=== PATIENT | female | born 1980 | race Two or more races ===

== ENCOUNTER 2020-02-16 05:46 | Inpatient (IN) | payer OTHER ==
[2020-02-16] VITALS (18 sets, daily range): BP systolic 113–147; BP diastolic 67–88
[~2020-02-16] VITALS: Ht 167.6 cm; Wt 96.6 kg
[2020-02-16] MEDS ORDERED: LR 1000ml 1,000 ML IVLG SCH (06:35)
[2020-02-16] MEDS ORDERED: Lidocaine 1% MPF 10mg/ml 5ml ONE (06:38)
[2020-02-16] MEDS ORDERED: Sodium Chloride 10ml vial INJ ONE (06:38)
[2020-02-16] MEDS ORDERED: Lidocaine 1% Plain 30 ml INJ ONE (06:39)
[2020-02-16] MEDS ORDERED: Vancomycin 1gm vial IVPB ONE (06:40)
[2020-02-16] MEDS ORDERED: Gelfoam Size TOPIC ONE (06:40)
[2020-02-16] MEDS ORDERED: Thrombin 5000 units TOPIC ONE (06:40)
[2020-02-16] MEDS ORDERED: Ropivacaine 5mg/ml Vial 20ml INJ ONE ×2 (06:41→06:56)
[2020-02-16] MEDS ORDERED: Bacitracin 50000 Units Vial ONE (06:41)
[2020-02-16] MEDS ORDERED: Hydromorphone 0.5mg/0.5ml inj IVP PRN (06:45)
[2020-02-16] MEDS ORDERED: oxyCODONE HCL/Acetaminophen 5/325mg ORAL PRN (06:45)
[2020-02-16] MEDS ORDERED: LORazepam Inj 2mg/ml 1ml IV PRN (06:45)
[2020-02-16] MEDS ORDERED: Midazolam 2mg/2ml Inj IVP PRN (06:45)
[2020-02-16] MEDS ORDERED: Atropine Sulfate 0.4mg/ml inj IVP PRN (06:45)
[2020-02-16] MEDS ORDERED: DiphenhydrAMINE 50mg/ml Inj IVP PRN (06:45)
[2020-02-16] MEDS ORDERED: Metoclopramide 10mg/2ml Inj IVP PRN ×2 (06:45→07:15)
[2020-02-16] MEDS ORDERED: Acetaminophen (Non formulary) 100 ML IV ONE (06:45)
[2020-02-16] MEDS ORDERED: HYDROcodone/Acetamin 5/325 tab ORAL PRN ×2 (06:45→07:15)
[2020-02-16] MEDS ORDERED: fentaNYL 100 mcg/2 mL IV PRN (06:45)
[2020-02-16] MEDS ORDERED: HYDROcodone/Acetamin 7.5/325 tab ORAL PRN ×3 (06:45→07:15)
[2020-02-16] MEDS ORDERED: Ketorolac 30mg Inj IV PRN ×2 (06:45)
[2020-02-16] MEDS ORDERED: Labetalol 5mg/ml 20ml vial IV PRN (06:45)
[2020-02-16] MEDS ORDERED: Meperidine 25mg/0.5ml Inj (FOR RIGORS ONLY) IV PRN (06:45)
[2020-02-16] MEDS ORDERED: Rocuronium Bromide 100mg/10ml Inj IV ONE (06:47)
[2020-02-16] MEDS ORDERED: Sterile Water Irrig 1000ml IRRIG ONE (07:00)
[2020-02-16] MEDS ORDERED: NS Irrig 1000ml ONE (07:00)
[2020-02-16] MEDS ORDERED: LR 1000ml ONE (07:00)
[2020-02-16] MEDS ORDERED: ceFAZolin sod 2 GM in NS 55 ML IVPB ONE (07:00)
[2020-02-16] MEDS ORDERED: propofoL 1,000mg/100ml IV ONE (07:00)
--- NOTE | 2020-02-16 07:14 | Pre-Procedure Note/Attestation ---
Pre-Procedure Note/Attestation Complete Prior to Procedure Planned Procedure: not applicable Procedure Narrative: Bilateral hemilaminotomy and left sided microdiscectomy L5S1 Indications for Procedure Pre-Operative Diagnosis: L5S1 herniation Attestation I attest that I discussed the nature of the procedure; its benefits; risks and complications; and alternatives (and the risks and benefits of such alternatives ), prior to the procedure, with the patient (or the patient's legal food service representative). I attest that, if there was a reasonable possibility of needing a blood transfusion, the patient (or the patient's legal food service representative) was given the [facility] standardized written summary, pursuant to the Raf Maynard Blood Safety Act ([place] Health and Safety Code # 1645, as amended). I attest that I re-evaluated the patient just prior to the surgery and that there has been no change in the patient's H&P, except as documented below: Matt Leung MD Feb 16, 2020 07:14
[2020-02-16] MEDS ORDERED: Morphine Sulfate 2mg/ml Inj(IV/IM USE ONLY) IV PRN (07:15)
[2020-02-16] MEDS ORDERED: Milk of Magnesia 30ml Ud ORAL PRN (07:15)
[2020-02-16] MEDS ORDERED: Naloxone 0.4mg/ml Inj IVP PRN (07:15)
[2020-02-16] MEDS ORDERED: Chloraseptic Spray 20mL Bottle ORAL PRN (07:15)
[2020-02-16] MEDS ORDERED: HYDROmorphone 1mg/ml Carpuject IVP PRN (07:15)
--- NOTE | 2020-02-16 07:15 | Brief Operative Note ---
Immediate Post Operative Note Operative Note Chief Complaint: back pain and radiculopathy Pre-op Diagnosis: L5S1 herniation Procedure: Bilateral hemilaminotomy and left sided microdiscectomy L5S1 Post-op Diagnosis: same as pre-op Findings: consistent w/pre-op dx studies Surgeon: Madhu Asset Recovery Specialist: Maria D Anesthesia: general Specimen: none Complications: none Condition: stable Fluids: IVF Estimated Blood Loss: minimal Drains: none Implant(s) used?: No Matt Leung MD Feb 16, 2020 07:15
[2020-02-16] MEDS ORDERED: Neostigmine 1mg/ml 10ml Inj ONE (08:05)
[2020-02-16] MEDS ORDERED: Glycopyrrolate 0.2mg/ml 1ml Vial ONE (08:05)
--- NOTE | 2020-02-16 08:06 | Anethesia Preoperative Eval ---
Anesthesia Pre-op PMH/ROS General Date of Evaluation: Feb 16, 2020 Time of Evaluation: 06:49 Anesthesiologist: Mikayla ASA Score: ASA 2 Mallampati Score Class I : Soft palate, uvula, fauces, pillars visible Class II: Soft palate, uvula, fauces visible Class III: Soft palate, base of uvula visible Class IV: Only hard plate visible Mallampati Classification: Class II Surgeon: Madhu Diagnosis: Back Pain Surgical Procedure: Bilateral L5-S1 Hemilminotomy, Left L5-S1 Microdiscectomy Anesthesia History: none Family History: no anesthesia problems Allergies: Coded Allergies: No Known Allergies (Unverified , 02/16/20) Medications: see eMAR Patient NPO?: Yes Past Medical History Cardiovascular: Reports: HTN Other: obesity - BMI 36 Anesthesia Pre-op Phys. Exam Physician Exam Last Vital Signs Date Time Temp Pulse Resp B/P (MAP) Pulse Ox O2 Delivery O2 Flow Rate FiO2 02/16/20 06:32 Room Air 02/16/20 06:31 97.1 72 18 131/84 (100) 98 Constitutional: NAD Neurologic: CN 2-12 intact Cardiovascular: RRR Respiratory: CTA Gastrointestinal: S/NT/ND Airway Exam Mallampati Score: Class II MO: full ROM: full Teeth: intact Anesthesia Pre-op A/P Labs Urine Test Test 02/16/20 06:00 Urine HCG, Qualitative Negative (NEGATIVE) Risk Assessment & Plan Assessment: ASA 2 Plan: GA, SED, GlideScope Pre-Antibiotics Dru Grams Ancef IV Given Within 1 Hr of Incision: Yes Time Given: 07:26 Kike Degroot MD Feb 16, 2020 08:06
--- NOTE | 2020-02-16 08:07 | Immediate Post-Op Evaluation ---
Immediate Post-Op Evalulation Immediate Post-Op Evalulation Procedure: Bilateral L5-S1 Hemilminotomy, Left L5-S1 Microdiscectomy Date of Evaluation: Feb 16, 2020 Time of Evaluation: 09:19 IV Fluids: 700 LR Blood Products: 0 Estimated Blood Loss: 50 Urinary Output: 125 Blood Pressure Systolic: 134 Blood Pressure Diastolic: 89 Pulse Rate: 83 Respiratory Rate: 16 O2 Sat by Pulse Oximetry: 100 Pain Score (1-10): 2 Nausea: No Vomiting: No Complications 0 Patient Status: awake, reacts, patent, extubated, none Hydration Status: adequate Dru Grams Ancef IV Given Within 1 Hr of Incision: Yes Time Given: 07:26 Kike Degroot MD Feb 16, 2020 08:07
--- NOTE | 2020-02-16 08:08 | 48 Hour Post Anesthesia Eval ---
Post Anesthesia Evaluation Procedure: Bilateral L5-S1 Hemilminotomy, Left L5-S1 Microdiscectomy Date of Evaluation: Feb 16, 2020 Time of Evaluation: 11:23 Blood Pressure Systolic: 132 0: 87 Pulse Rate: 84 Respiratory Rate: 18 Temperature (Fahrenheit): 98 O2 Sat by Pulse Oximetry: 100 Airway: patent Nausea: No Vomiting: No Pain Intensity: 2 Hydration Status: adequate Cardiopulmonary Status: Stable Mental Status/LOC: patient returned to baseline Follow-up Care/Observations: 0 Post-Anesthesia Complications: 0 Follow-up care needed: N/A Kike Degroot MD Feb 16, 2020 08:08
--- NOTE | 2020-02-16 10:17 | NUR ---
NURSE NOTES: patient arrived to the unit s/p surgery in stable condition, pt sleeping but arousable to name calling no s/s of distress on Oxygen 2L via NC, family by the bed side. Received report from post op nurse Zonia Naqvi, pt tolerated procedure well , vitals stable WNL, T97.3 HR 67 RR18 BP 143/89 [id number] , log rolled pt and dressing is clean intact, no s/s of bleeding, pt able to wiggle her toes, bed in low locked position, side rails upX2 call light with in reach. Among belonging signed by pt before surgery , pt came with phone and CD only, other belongs to be brought up by out patient per nurse Donya. , will continue with plan of care
[2020-02-16] MEDS: Morphine Sulfate 4mg/ml Inj (IV USE ONLY) IV PRN ×3 (11:04→20:49)
--- NOTE | 2020-02-16 11:19 | Diagnostic Imaging Report ---
XRAY L Spine 1V CLINICAL HISTORY: Back pain. COMPARISON: None FINDINGS: Fluoroscopy independent procedure performed for lumbar localization. 3.5 seconds of fluoroscopy time utilized by the ordering physician. Total cumulative dose is 0.06 mGy and 0.90832 Gy.cm2. Single digital spot image obtained . IMPRESSION: FLUOROSCOPY GUIDED PROCEDURE.
[2020-02-16] MEDS: NS w/KCl 20mEq 1000ml 1,000 ML IV SCH ×2 (12:15→22:22)
--- NOTE | 2020-02-16 14:12 | NUR ---
P.T Note: P.T evaluation completed and tx initiated per spinal protocol. Please refer to P.T evaluation for current functional status.
--- NOTE | 2020-02-16 14:19 | NUR ---
CASE MANAGEMENT: INITIAL REVIEW 39YR OLD FEMALE HERE FOR SCHEDULED SURGERY CC: BACK PAIN SI:L5S1 HERNIATION 97.1 72 18 131/84 98% HCG URINE NEGATIVE IS:IN SURGERY NOW BILATERAL HEMILAMINOTOMY L5-S1 AND LEFT MICRODISCECTOMY L5- S1 \: 3E MED SURG UNIT DCP: HOME WHEN STABLE PLAN: CONTROL PAIN MONITOR FOR FEVERS SCD'S ENCOURAGE AMBULATION
[2020-02-16] MEDS: ceFAZolin sod 1 GM in D5W 55 ML IV SCH ×2 (15:23→23:47)
[2020-02-16] MEDS: Docusate 100mg cap ORAL SCH (17:08)
--- NOTE | 2020-02-16 18:15 | Operative Note - Dictated ---
DATE OF OPERATION: 02/16/2020 SURGEON: Matt Leung M.D., orthopaedic spine surgeon. WEASAND TRIMMER SURGEON: JORDANA Ray. ANESTHESIA: General endotracheal anesthesia. PREOPERATIVE DIAGNOSES: 1. Intractable back pain. 2. Intractable leg pain. 3. Worsening radiculopathy. 4. Weakness. 5. Herniated nucleus pulposus, L5-S1 herniation. 6. Neural foraminal stenosis, L5-S1. POSTOPERATIVE DIAGNOSES: 1. Intractable back pain. 2. Intractable leg pain. 3. Worsening radiculopathy. 4. Weakness. 5. Herniated nucleus pulposus, L5-S1 herniation. 6. Neural foraminal stenosis, L5-S1. PROCEDURES PERFORMED: 1. Left-sided L5-S1 microdiscectomy. 2. Bilateral hemilaminotomy, foraminotomy, and medial facetectomy partial at L5-S1. 3. L5-S1 neural foraminotomy through a transpedicular intraforaminal approach. 4. Use of intraoperative microscope. 5. Supervision and interpretation of intraoperative fluoroscopy. 6. Supervision and interpretation of somatosensory-evoked potential and free running EMG monitoring. ESTIMATED BLOOD LOSS: Less than 100 mL. COMPLICATIONS: None. INDICATIONS FOR THE PROCEDURE: The patient presents for intractable back pain and radiculopathy. The patient tried and failed a prolonged course of conservative management, including but not limited to chiropractic therapy, physical therapy, nonsteroidal anti-inflammatory drugs, medication, ice packs as well as epidural injection. Despite these therapies, the patient still developed recalcitrant pain and elected for definitive management in the form of left-sided L5-S1 microdiscectomy, bilateral hemilaminotomy, foraminotomy, and medial facetectomy partial at L5-S1, L5-S1 neural foraminotomy through a transpedicular intraforaminal approach. CONSENT: We had a long discussion with the patient regarding definitive surgical treatment options. The patient's MRI demonstrated herniated nucleus pulposus, L5-S1 herniation, neural foraminal stenosis, L5-S1 and as a result, I felt the patient would benefit from the discectomy as well as neural foraminotomy at this level. We had a long discussion with the patient regarding the risks, alternatives, and benefits of surgery. Our description of the risks included a discussion in person as well as a signed consent which detailed all pertinent risks and the procedure itself. Briefly, our discussion included but was not limited to infection, bleeding, pseudarthrosis, spinal cord injury, neurovascular injury, dural tear, CSF leak, neuropathy, paralysis, permanent weakness/drop foot, paresthesias blindness, palsy and weakness. The patient understood there may be a need for revision surgery or additional procedures. Approach related complications including dysphonia, dysphagia, blindness, permanent vocal cord and neural injury, hematoma, swallowing and breathing difficulty. Medical complications including liver, kidney, shock, and cardiopulmonary failure. Anesthesia complications including , swelling. Damage to the musculature, larynx (voice injury or loss),esophagus (throat), trachea, blood vessels and muscles (muscular sprain) and lungs (pneumothorax) during this surgical procedure. Injury to deeper structures may be temporary or permanent. The patient understood these and elected to proceed. A written and verbal consent was given. We discussed the pros and cons of all the alternatives. We discussed the uncertainties associated with the decision. Afterwards I assessed the patients understanding and explored their preferences. All questions were answered and no guarantees were given. Medical clearance was obtained prior to surgery OPERATIVE FINDINGS: L5-S1, I encountered a large disc herniation has been probed with a Microsect curette, which was found to be extruding through a tear radially in the posterior longitudinal ligament. The tear was approximately 10 degrees cephalad to caudad, left-sided, through which I noted the extruded fragments. This tear has communicated with the central nuclear tissue and as a result the nucleus pulposus being herniated. There was significant neural foraminal stenosis in the left side. There was some component of foraminal stenosis also on the right side. This was decompressed. DESCRIPTION OF PROCEDURE: Under the benefit of general endotracheal anesthesia and with the assistance of the entire operative team, the patient was moved from the [facility] the operative table in the prone position on a Dario frame. The head was secured and positioned appropriately. Bilateral arms were secured with Gel pads and foam and all bony prominences were padded. The bilateral lower extremity SCD and BAKARI hose were placed for DVT prophylaxis. A surgical timeout was called which corroborated our planned procedure. Preoperative Antibiotics were administered within 30 minutes of the incision for prophylaxis. Decadron was given for preoperative steroids. Using lateral radiography, the operative levels were delineated. An incision was marked based on our interpretation of lateral radiography and afterwards the body was prepped and draped in the usual sterile manner. The family was notified that we were ready to commence surgery and were called in the waiting room hourly for updates An incision was based on our lateral fluoroscopic image to center the incision at the L5-S1 interspace. The wound was prepped and draped in the usual sterile fashion. Using a scalpel a midline incision was taken down through the skin and subcutaneous tissues until the overlying hemilamina of L5-S1 was visualized. Next, using meticulous hemostasis, hemilamotomies were dissected and retractors were placed. Using a Bibb dental, we confirmed placement at the L5-S1 interspace. We next turned our attention to our decompression. A standard hemilaminotomy foraminotomy medial facetectomy was performed at each level in standard fashion using a Midas-Aleksander type AM8 drill bit, straight and angled curettage, and Kerrison 4 rongeurs until the lateral thecal sac margin and traversing nerve root was visualized. All remainders of the ligamentum flavum and lateral bony margins were resected in total with angled curettage and Kerrison 4 rongeurs until the lateral thecal sac margin and traversing nerve root was visualized and decompressed. We next turned our attention toward our L5-S1 microdiscectomy on the left side. A Steuben 4 was used to gently mobilize the thecal sac medially and this was held retracted with a bayonetted nerve root retractor. It was at this point that we noted a large broad-based disc protrusion with encroachment dorsally on the thecal sac neural foraminal contents. A bayonet and nerve root retractor was then placed carefully to retract the thecal sac and a discectomy was performed using a combination of a long handled 15 blade scalpel, downgoing and straight pituitaries and downgoing curettage. Afterward the disc space was irrigated twice with 20 mL of antibiotic-impregnated saline. All loose and free-floating disc fragments were carefully resected with a narrow pituitary. Having been satisfied with our decompression after our discectomy of all neural elements, we next turned our attention to our neural foraminoplasty/foraminotomy. This was performed through a transpedicular intraforaminal approach using an access probe followed by a neuro check device, which confirmed ventral placement of our nerve root. Once we confirmed we were safe, we next turned our attention towards placement of our size 10 file under direct microscopic visualization and under lateral fluoroscopy. Using pre and post reciprocation imaging, we were able to visualize our direct decompression given the reciprocation allowed for re-creation of the neural foraminal arch at L5-S1. Afterwards, hemostasis was obtained with 60 mL of antibiotic-impregnated saline followed by FloSeal and Gelfoam. After sponge and needle count were found to be correct, we next turned our attention to closure. Closure consisted of 1-0 Vicryl in standard interrupted fashion. Zosyn was placed deep to the fascia and superficial to the fascia for antibiotic prophylaxis. Skin closure was performed with 2-0 Vicryl in interrupted fashion followed by a running Monocryl for the skin. Final dressings consisted of Dermabond for the superficial skin, Telfa and Tegaderm. The patient tolerated the procedure well. The patient was extubated after the conclusion of surgery without incident. We discussed the findings of the surgery with the family upon completion of the case. At this point the patient will be transferred to the spine floor for further observation. Matt Leung M.D. DR: DAVID JOB#: [id number] CC:
--- NOTE | 2020-02-16 19:31 | NUR ---
HAND-OFF: Report given to Taty ANNE, pt stable.
--- NOTE | 2020-02-16 19:32 | NUR ---
NURSE NOTES: Received pt in the bed awake,a&o x4 , and verbal. pt has no sob,fever, cough and pain at the moment. iv is intact and asymptomatic. pt is ambulatory. bed is in the lower position, locked, and call light within reach.
[2020-02-17] VITALS: BP 98/53
[2020-02-17 04:00] VITALS: BP 115/71
[2020-02-17] MEDS: ceFAZolin sod 1 GM in D5W 55 ML IV SCH (06:31)
[2020-02-17] MEDS: Morphine Sulfate 4mg/ml Inj (IV USE ONLY) IV PRN ×2 (07:07→13:09)
--- NOTE | 2020-02-17 07:10 | NUR ---
HAND-OFF: Report given to DAYANA lofton.
--- NOTE | 2020-02-17 07:34 | NUR ---
NURSE NOTES: Received report from Taty RN, pt remains stable s/p surgery, rounds made pt wake and having breakfast with no s/s of distress on RA , pt denies any pain at this time , pt has R hand 18 G with IVF, patent asymptomatic , bed in low locked position side rails upX2, call light with in reach, will continue with plan of care
[2020-02-17 08:00] VITALS: BP 112/62
[2020-02-17] MEDS: Docusate 100mg cap ORAL SCH ×2 (08:25→17:38)
[2020-02-17] MEDS: NS w/KCl 20mEq 1000ml 1,000 ML IV SCH ×2 (08:25→18:00)
--- NOTE | 2020-02-17 09:29 | General Progress Note ---
Assessment/Plan Assessment/Plan: back pain and radiculopathy L5S1 herniation Bilateral hemilaminotomy and left sided microdiscectomy L5S1 PLAN 1. incentive spirometry 2. SCD 3. PT evaluation and therapy 4. Hydration 5. Pain management 6. discharge once stable with outpatient follow up Subjective Allergies: Coded Allergies: No Known Allergies (Unverified , 02/16/20) Subjective asked to follow up post op Objective Last 24 Hour Vital Signs Date Time Temp Pulse Resp B/P (MAP) Pulse Ox O2 Delivery O2 Flow Rate FiO2 02/17/20 04:00 97.6 60 18 115/71 (86) 98 02/17/20 00:00 98.0 63 17 98/53 (68) 95 02/16/20 21:00 Room Air 02/16/20 20:00 98.6 66 18 113/67 (82) 95 02/16/20 16:00 98.4 72 18 122/84 (97) 95 02/16/20 13:20 Nasal Cannula 3.0 02/16/20 13:17 98.1 82 20 125/75 (92) 100 02/16/20 12:17 98.2 82 20 122/85 (97) 100 02/16/20 11:17 98.0 71 20 119/75 (90) 100 02/16/20 10:47 98.4 71 20 130/79 (96) 100 02/16/20 10:17 97.3 67 18 143/84 (103) 100 02/16/20 10:05 98.0 65 15 139/81 99 Nasal Cannula 3 02/16/20 10:03 98.0 02/16/20 10:03 98.0 02/16/20 10:00 62 14 134/83 98 Nasal Cannula 3 02/16/20 09:55 65 13 138/88 100 Nasal Cannula 3 02/16/20 09:50 67 13 137/87 100 Simple Mask 6 02/16/20 09:40 74 16 136/83 100 Simple Mask 6 02/16/20 09:35 79 18 139/88 100 Simple Mask 6 Intake and Output 02/16/20 02/17/20 19:00 07:00 Intake Total 1985 ml 1310 ml Output Total 145 ml Balance 1840 ml 1310 ml Intake Oral 360 ml 400 ml IV Total 1625 ml 910 ml Output Urine Total 125 ml Estimated Blood Loss 20 ml # Voids 3 6 Height (Feet): 5 Height (Inches): 6.00 Weight (Pounds): 213 Objective WDWN NAD clear breath sounds bilaterally without rhonchi or wheeze [id number] without MRG NABS nontender no HSM no CCE nonfocal Lorenzo Spence MD Feb 17, 2020 09:29
--- NOTE | 2020-02-17 10:09 | NUR ---
NURSE NOTES: Seen and evaluated by and ok to discharge patient today. Order noted and carried out.
[2020-02-17 12:00] VITALS: BP 133/86
--- NOTE | 2020-02-17 12:41 | NUR ---
CASE MANAGEMENT: REVIEW 02/17/2020 SI:Herniated nucleus pulposus, L5-S1 herniation. POD#1 Bilateral hemilaminotomy, foraminotomy, and medial facetectomy partial at L5-S1. VS: T 98.5 HR 75 RR 20 B/P 133/86 SATS 95% ON RA LABS: NONE TODAY IS:KCL @ 100 ML/HR COLACE PO BID MED/SURG DCP: HOME
--- NOTE | 2020-02-17 14:10 | NUR ---
DISCHARGE PLANNING: NOTE PER NURSING PT HAS A FWW AT THE BEDSIDE THAT SHE WILL TAKE HOME W/ HER
[2020-02-17 16:00] VITALS: BP 116/72
[2020-02-17] MEDS ORDERED: NORCO 10-325 T1 EACH ORAL (18:12)
--- NOTE | 2020-02-17 19:20 | NUR ---
NURSE NOTES: Discharged patient with family member in stable condition. Discharge instruction given to patient and verbalized understanding. IV and ID removed. Instructed to follow up with MD and verbalized understanding. Pain medication prescription filled by family member. Front wheel walker given to patient. Patient ambulated out with all personal belongings with steady gait.
--- NOTE | 2020-02-19 16:32 | Discharge Summary ---
Discharge Summary Hospital Course Date of Admission Feb 16, 2020 at 05:46 Date of Discharge Feb 17, 2020 at 19:20 Admitting Diagnosis Intractable back pain, lumbar radiculopathy Reason for Hospitalization: Elective surgery HPI Sofya Santillan is a 39 year old female who was admitted on Feb 16, 2020 at 05: 46 for herniated nucleus pulposus, worsening back pain with radiculopathy . Consultations -Dr Spence- BUTCH/pulmo Procedures POSTOPERATIVE DIAGNOSES: 1. Intractable back pain. 2. Intractable leg pain. 3. Worsening radiculopathy. 4. Weakness. 5. Herniated nucleus pulposus, L5-S1 herniation. 6. Neural foraminal stenosis, L5-S1. PROCEDURES PERFORMED: 1. Left-sided L5-S1 microdiscectomy. 2. Bilateral hemilaminotomy, foraminotomy, and medial facetectomy partial at L5-S1. 3. L5-S1 neural foraminotomy through a transpedicular intraforaminal approach. 4. Use of intraoperative microscope. 5. Supervision and interpretation of intraoperative fluoroscopy. 6. Supervision and interpretation of somatosensory-evoked potential and free running EMG monitoring. Hospital Course status post surgery course of recovery uneventful initially IV fluids s/p perioperative antibiotic and steroid neurovascular status closely monitored, remained stable incision clean , dry and intact pain management was addressed ; and pain was controlled remained hemodynamically stable ambulated with PT fall precautions maintained; safe for ambulation DVT prophylaxis provided use of incentive spirometry was encouraged while in the bed tolerated diet , IV fluids discontinued GI prophylaxis provided antiemetics were on board as needed voided freely bowel regimen instituted patient was stable for discharge discharge instructions provided follow up with surgeon in the office as advised FINAL DIAGNOSES: 1. Intractable back pain. 2. Intractable leg pain. 3. Worsening radiculopathy. 4. Weakness. 5. Herniated nucleus pulposus, L5-S1 herniation. 6. Neural foraminal stenosis, L5-S1. 7. s/p Bilateral L5-S1 Hemilaminotomy, Left L5-S1 Microdiscectomy Discharge Medications Continued Medications: Hydrocodone Bit/Acetaminophen 10-325* ([place] 10-325*) 1 Each Tablet 1 TAB ORAL Q8HR PRN for For Pain, #90 TAB 0 Refills (This prescription has been renewed) PRN PAIN Discharge Condition Upon Discharge: stable Discharge Vital Signs Last Vital Signs Date Time Temp Pulse Resp B/P (MAP) Pulse Ox O2 Delivery O2 Flow Rate FiO2 02/17/20 16:00 98.5 72 18 116/72 (87) 95 02/17/20 09:00 Room Air 02/16/20 13:20 3.0 Discharge Disposition Patient was discharged to Home (01) Discharge Instructions Discharge Instructions Special Instructions I have been assigned to complete a D/C Summary on this account. I was not involved in the patient management Vilma Ray NP Feb 19, 2020 16:32
--- NOTE | 2020-02-19 18:51 | Diagnostic Imaging Report ---
XRAY L Spine 1V CLINICAL HISTORY: Back pain. COMPARISON: None FINDINGS: Fluoroscopy independent procedure performed for lumbar localization. 3.5 seconds of fluoroscopy time utilized by the ordering physician. Total cumulative dose is 0.06 mGy and 0.25842 Gy.cm2. Single digital spot image obtained . IMPRESSION: FLUOROSCOPY GUIDED PROCEDURE.
== END 2020-02-17 19:20 | disposition home or self-care (01) | DRG 520 ==
LOC: SDSOVERFLO 05:46 → 3E 10:37
PROC: 01NB0ZZ Release Lumbar Nerve, Open Approach (ICD-10-PCS; principal; 2020-02-16 07:00)
PROC: 0SB40ZZ Excision of Lumbosacral Disc, Open Approach (ICD-10-PCS; principal; 2020-02-16 07:00)
PROC: 01NR0ZZ Release Sacral Nerve, Open Approach (ICD-10-PCS; principal; 2020-02-16 07:00)
DX: M51.17 Intervertebral disc disorders with radiculopathy, lumbosacral region (principal); M48.07 Spinal stenosis, lumbosacral region; V89.2XXS Person injured in unspecified motor-vehicle accident, traffic, sequela
CPT/HCPCS: 36415; 72020; 76000; 81025; 86850; 86900; 86901; 87081; 94003; 94150; J2180; J2405; J2710; J2795